=== PATIENT | female | born 1935 | race Caucasian/White ===

== ENCOUNTER → 2016-10-25 | Outpatient (CLI) | payer OTHER ==
[~2016-10-25] MED LIST: ASPI81TA28 PO; CALC600T37 PO; CHOL1000 PO; LEVO50TA6 PO; MULT-506 PO; SIMV20TA2 PO
[2016-10-25 13:21] LABS: BASO % 0.4 %; BASO ABS # 0.02 K/uL (0-0.2); COMPLETE YES; EOS % 1.7 %; HEMATOCRIT 42.7 % (37-47); IG% 0.2 %; LYMPH % 29.1 %; LYMPH ABS # 1.37 K/uL (1.2-3.4); MEAN CELL VOLUME 84.4 fL (80-100); MEAN CORPUSCULAR HEMOGLOBIN 28.1 pg (25-34); MEAN CORPUSCULAR HGB CONC 33.3 g/dl (32-36); MEAN PLATELET VOLUME 8.4 fL (7.4-10.4); MONO % 10.6 %; PLATELET COUNT 227 K/uL (130-400); RED BLOOD COUNT 5.06 M/uL (4.2-5.4)
[2016-10-25 13:34] LABS: PARTIAL THROMBOPLASTIN RATIO 1.1; PROTHROMBIN TIME (PATIENT) 10.3 SECONDS (9.0-12.0)
[2016-10-25 13:51] LABS: POTASSIUM 3.9 mmol/L (3.5-5.1)
== END | disposition home or self-care (01) ==
LOC: C.CPL 12:12
PROVIDERS: ATTEND Physician Assistant
DX: H02.403 Unspecified ptosis of bilateral eyelids (principal)

== ENCOUNTER → 2016-10-26 | Outpatient (CLI) | payer OTHER ==
--- NOTE | 2016-10-26 15:51 | MAMMOGRAPHY REPORT ---
BILATERAL DIGITAL SCREENING MAMMOGRAM WITH CAD: 10/26/2016 CLINICAL HISTORY: Routine screening. Patient has no complaints. TECHNIQUE: Bilateral CC and MLO views were obtained. Repeat MLO views were obtained to better visual ize the axillary tail. Current study was also evaluated with a Computer Aided Detection (CAD) system . COMPARISON: Comparison is made to exams dated: 09/29/2015 mammogram, 09/25/2014 mammogram, 09/19/2013 m ammogram, 09/08/2010 mammogram - [facility], 12/17/2008, and 05/14/2003 mammogram - [facility]. BREAST COMPOSITION: There are scattered areas of fibroglandular density in both breasts. FINDINGS: There are mild vascular calcifications in the breasts. No suspicious mass, architectural distortion or cluster of microcalcifications is seen. IMPRESSION: ACR BI-RADS CATEGORY 1: NEGATIVE There is no mammographic evidence of malignancy. A 1 year screening mammogram is recommended. The pa tient will receive written notification of the results. Approximately 10% of breast cancers are not detected with mammography. A negative mammographic report should not delay biopsy if a clinically suggestive mass is present. Marcy Barrera M.D. ay/:10/26/2016 15:12:44 Machine Binder Stripper: Ammy Byrnes, [facility] letter sent: Normal 1/2 BI-RADS Code: ACR BI-RADS Category 1: Negative
== END | disposition home or self-care (01) ==
LOC: C.MAMM 14:22
PROVIDERS: ATTEND Physician Assistant
DX: Z12.31 Encounter for screening mammogram for malignant neoplasm of breast (principal)

== ENCOUNTER → 2016-11-02 | Day surgery (SDC) | payer OTHER ==
[2016-10-22 15:24] VITALS: Ht 160 cm; Wt 56.8 kg
[~2016-11-02] VITALS: Ht 160 cm; Wt 56.8 kg
[~2016-11-02] MED LIST changes: +ACETAMINOPHEN 325 MG TAB PO PRN; +ARTIFICIAL TEARS OP OINT 3.5 GM TUBE ONE; +ATROPINE SULFATE 0.1 MG/ML 5ML SYR IV PRN; +BSS FLUSH ONE; +CLINDAMYCIN PHOS 150 MG/ML 2 ML VIAL IV SCH; +ERYTHROMYCIN OP OINT 5 MG/GM 3.5 GM TUBE ONE; +EpHEDrine SULFATE INJ 50 MG/ML AMP IV PRN; +FENTANYL CITRATE INJ 50 MCG/1 ML 2 ML VIAL IV PRN; +FENTANYL CITRATE INJ 50 MCG/1 ML 2 ML VIAL ONE; +FLUMAZENIL 0.1 MG/1 ML 10 ML VIAL IV PRN; +GENTIAN VIOLET TOP SOLN DROP CHARGE ONE; +HYDROmorphone INJ 1 MG/ML SYR IV PRN; +LABETALOL HCL IV 5 MG/ML 20ML IV PRN; +LACTATED RINGER'S 1000ML 1,000 ML IV SCH; +LIDOCAINE HCL 2% 2 ML VIAL (20MG/ML) ONE; +LIDOCAINE/EPINEPHRINE 1% INJ 50 ML VIAL ONE; +MEPERIDINE HCL 25 MG/ML CARP IV PRN; +METOCLOPRAMIDE HCL INJ 5 MG/ML 2 ML VIAL IV PRN; +MIDAZOLAM HCL 1 MG/ML 2ML VIAL ONE; +NALOXONE HCL 0.4 MG/1 ML VIAL/CARP IV PRN; +ONDANSETRON INJ 2 MG/ML 2 ML VIAL IV PRN; +ONDANSETRON INJ 2 MG/ML 2 ML VIAL ONE; +OXYCODONE/ACETAMINOPHEN 5-325 TAB PO PRN; +PHENYLEPHRINE 100MCG/ML 5ML SYR IV PRN; +POVIDONE-IODINE OP SOLN 30 ML BTL ONE; +PROPOFOL IV EMULSION 10 MG/ML 20 ML VIAL IV ONE; +SODIUM CHLORIDE 0.9% 1000ML 1,000 ML IV SCH; +TOBRAMYCIN/DEXAMETHASONE OPH OINT PER APPLN CHARGE ONE
--- NOTE | 2016-11-02 08:32 | History & Physical Bridge - SC ---
H&P Re-Evaluation Bridge Note: I have examined the patient, reviewed the History & Physical and in the interval since the performance of the History & Physical I have noted the following changes of clinical significance: No changes noted
--- NOTE | 2016-11-02 10:40 | [facility] Post Operative Brief Note ---
Immediate Operative Summary Operative Date Nov 02, 2016. Pre-Operative Diagnosis Bilateral upper eyelid Ptosis Post-Operative Diagnosis Same as pre-op Procedure(s) Performed Bilateral Upper Eyelid Ptosis Repair Surgeon Dr. Castillo Bleach Maker Surgeon(s) None Estimated Blood Loss 2ML Findings symmetric repair Specimens None Anesthesia local with sedation Complication(s) None Disposition Recovery Room / PACU
--- NOTE | 2016-11-02 10:44 | Discharge Instructions-SurgCtr ---
Discharge Instructions Date of Service Nov 02, 2016. Visit Reason for Visit: Ptosis Of Both Eyelids Discharge Discharge Diagnosis / Problem: eyelid ptosis Discharge Goals Goal(s): Decrease discomfort, Improve function Medications Stopped Medications Name(s): HELD ASPIRIN AND VITAMINS FOR 10 DAYS Activity Recommendations Activity Limitations: as noted below Anesthesia . Post Anesthesia Instructions: If you have had General Anesthesia or IV Sedation: * Do not drive today. * Resume driving when surgeon permits. * Do not make important decisions or sign legal documents today. * Call surgeon for: 1. Temperature elevations greater than 101 degrees F. 2. Uncontrollable pain. 3. Excessive bleeding. 4. Persistent nausea and vomiting. 5. Medication intolerance (nausea, vomiting or rash). * For nausea and vomiting use only clear liquids such as: tea, soda, bouillon until nausea subsides, then gradually increase diet as tolerated. * If you have any concerns or questions, call your surgeon's office. If physician is unavailable and it is an emergency, call 911 or go to the nearest emergency room. . Instructions / Follow-Up Instructions / Follow-Up ACTIVITY RECOMMENDATIONS: __Normal activities x__No bending, lifting or straining __No driving _x_Driving allowed when you are off pain medications and you can see clearly __Walking permitted __You should have help at home for ___ days DRESSINGS: __No dressings required __Keep dressings dry/in place until first office visit __Remove dressings ___ and leave dressings off _x_Apply ice for at least 2 days __Remove dressings and reapply garment _x_Apply prescribed antibiotic ointment to wounds 3-4 times/day for 10 days BATHING: __Keep dressings dry __Sponge bathing permitted _x_Showering permitted _x_No swimming, hot tubs or soaking in a tub MEDICATIONS: Resume previous medications unless instructed otherwise by your surgeon. _x_Do not use aspirin, Motrin, Advil or Ibuprofen as these may promote bleeding. Please use Tylenol. _x_Prescription(s) provided: pain meds given in office OTHER INSTRUCTIONS: __Record drain output 2-3 times per day SPECIAL CARE INSTRUCTIONS: * It is normal to have a mild fever after surgery. If your temperature is higher than 101.5 degrees F, please call the office at [phone]. * Constipation is a typical side effect of pain medication. An over-the- counter stool softener will help relieve this. * Leaking around surgical drains may occur and should not cause concern. Sometimes these drains become clogged. If this happens, remove the bulb and milk the clot out of the tube, then replace the bulb. * Drainage from wounds after liposuction is normal and should be expected. Garments will become soiled. You should protect furniture and bedding. This drainage should mostly subside within 2-3 days. Leave garments in place unless instructed to remove them. * If you have unusual drainage from a wound or are concerned you have an infection or have any questions or concerns, please call the office at [phone]. FOLLOW UP VISIT: If not already scheduled, please call the office, , when you return home after surgery to schedule an appointment to be seen in _2__ days. Diet Recommendations Home Diet: no limitations, resume previous diet Procedures Procedures Performed: Bilateral Upper Eyelid Ptosis Repair Pending Studies Studies pending at discharge: no Medical Emergencies . Who to Call and When: Medical Emergencies: If at any time you feel your situation is an emergency, please call 911 immediately. . Non-Emergent Contact Non-Emergency issues call your: Primary Care Provider, Surgeon . . "Provider Documentation" section prepared by Eliane Castillo. .
[2016-11-02 10:47] VITALS: TEMP 36.2
--- NOTE | 2016-11-02 11:09 | Anesthesia Progress Nt - [facility] ---
Anesthesia Post Op Note Date & Time Nov 02, 2016 at 11:09 Vital Signs Pain Intensity: 0 Vital Signs Past 12 Hours Date Time Temp Pulse Resp B/P (MAP) Pulse Ox O2 Delivery O2 Flow Rate FiO2 11/02/16 10:47 36.2 64 16 174/75 (108) 96 Room Air 11/02/16 07:43 36.5 78 16 164/86 (112) 96 Room Air Notes Mental Status: alert / awake / arousable, participated in evaluation Pt Amnestic to Procedure: Yes Nausea / Vomiting: adequately controlled Pain: adequately controlled Airway Patency, RR, SpO2: stable & adequate BP & HR: stable & adequate Hydration State: stable & adequate Anesthetic Complications: no major complications apparent
[2016-11-02 12:21] VITALS: BP 162/76; PULSE 66; O2SAT 95
--- NOTE | 2016-11-03 09:02 | OPERATIVE REPORT ---
DATE OF OPERATION: 11/02/2016 PREOPERATIVE DIAGNOSIS: Bilateral upper eyelid ptosis. POSTOPERATIVE DIAGNOSIS: Same. PROCEDURE: Bilateral upper eyelid ptosis repair via levator plication. SURGEON: Dr. Eliane Castillo. MENTAL HEALTH ASSOCIATE: None. ANESTHESIA: Local with sedation. COMPLICATIONS: None. 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 We discussed options for repair and I recommended bilateral upper eyelid ptosis repair via an external approach with levator plication. BRIEF DESCRIPTION OF THE PROCEDURE: The risks, benefits and alternatives of the procedure were explained to the patient who agreed and signed consent. She was identified and marked in the preoperative holding area. She was brought to the operating room where she was positioned supine and placed under sedation without incident. The surgical site was prepped and draped sterilely. A time-out procedure was performed. Surgical site markings were applied. I marked the supratarsal crease 8 mm above the ciliary margin and mid pupillary line. The incision was extended laterally into the [place] area and medially, taking care not to cross the medial punctum. Excess skin of the upper lid was marked for excision. The patient had absence of eyebrows and so therefore I made my measurements from the orbital rim about 1 cm inferior to the orbital rim. Similar markings were applied on the right side. 1% lidocaine with epinephrine was used to anesthetize the planned incisions. A 15 blade scalpel was used to make the incision and remove the skin from the underlying orbicularis muscle using electrocautery. Hemostasis was achieved with electrocautery. A strip of orbicularis muscle was then removed and the orbital septum was identified. The septum was opened and a scant amount of fat was identified and cauterized. The septum was dissected away superiorly and inferiorly until the tarsal plate and vascular arcade were identified. Superiorly, the levator muscle was noted and dissection was performed. A 6-0 U-suture was placed in the mid pupillary line to advance the levator muscle to the tarsal plate to plicate the levator aponeurosis. It was advanced about 8 mm. A similar procedure was undertaken on the right side. The patient was placed in the seated position and asked to open and close her eyes. There was still noted to be ptosis and asymmetry bilaterally. The U-suture was redone and additional sutures were placed until the lid position was at the superior limbus bilaterally. The patient was then additionally sedated and wound closure was performed using 6-0 nylon interrupted sutures to close the skin, taking a bite of underlying orbicularis muscle. Following the procedure, eyes were irrigated with BSS and ophthalmic antibiotic ointment was placed. The patient was once again placed in seated position and noted to have good elevator function with improvement of her ptosis. The procedure was tolerated well. The patient was awakened and transferred to recovery room in satisfactory condition. I attest to the content of the Intraoperative Record and any orders documented therein. Any exception s are noted below.
== END | disposition home or self-care (01) ==
LOC: X.SURG 07:34
PROVIDERS: ATTEND Plastic Surgery
DX: H02.403 Unspecified ptosis of bilateral eyelids (principal); E78.00 Pure hypercholesterolemia, unspecified; E03.9 Hypothyroidism, unspecified; Z79.82 Long term (current) use of aspirin; Z79.899 Other long term (current) drug therapy

== ENCOUNTER → 2017-02-23 | Outpatient (CLI) | payer OTHER ==
[~2017-02-23] MED LIST changes: -ACETAMINOPHEN 325 MG TAB PO PRN; -ARTIFICIAL TEARS OP OINT 3.5 GM TUBE ONE; -ASPI81TA28 PO; -ATROPINE SULFATE 0.1 MG/ML 5ML SYR IV PRN; -BSS FLUSH ONE; -CLINDAMYCIN PHOS 150 MG/ML 2 ML VIAL IV SCH; -ERYTHROMYCIN OP OINT 5 MG/GM 3.5 GM TUBE ONE; -EpHEDrine SULFATE INJ 50 MG/ML AMP IV PRN; -FENTANYL CITRATE INJ 50 MCG/1 ML 2 ML VIAL IV PRN; -FENTANYL CITRATE INJ 50 MCG/1 ML 2 ML VIAL ONE; -FLUMAZENIL 0.1 MG/1 ML 10 ML VIAL IV PRN; -GENTIAN VIOLET TOP SOLN DROP CHARGE ONE; -HYDROmorphone INJ 1 MG/ML SYR IV PRN; -LABETALOL HCL IV 5 MG/ML 20ML IV PRN; -LACTATED RINGER'S 1000ML 1,000 ML IV SCH; -LIDOCAINE HCL 2% 2 ML VIAL (20MG/ML) ONE; -LIDOCAINE/EPINEPHRINE 1% INJ 50 ML VIAL ONE; -MEPERIDINE HCL 25 MG/ML CARP IV PRN; -METOCLOPRAMIDE HCL INJ 5 MG/ML 2 ML VIAL IV PRN; -MIDAZOLAM HCL 1 MG/ML 2ML VIAL ONE; -NALOXONE HCL 0.4 MG/1 ML VIAL/CARP IV PRN; -ONDANSETRON INJ 2 MG/ML 2 ML VIAL IV PRN; -ONDANSETRON INJ 2 MG/ML 2 ML VIAL ONE; -OXYCODONE/ACETAMINOPHEN 5-325 TAB PO PRN; -PHENYLEPHRINE 100MCG/ML 5ML SYR IV PRN; -POVIDONE-IODINE OP SOLN 30 ML BTL ONE; -PROPOFOL IV EMULSION 10 MG/ML 20 ML VIAL IV ONE; -SODIUM CHLORIDE 0.9% 1000ML 1,000 ML IV SCH; -TOBRAMYCIN/DEXAMETHASONE OPH OINT PER APPLN CHARGE ONE
[2017-02-23 10:37] LABS: BASO % 0.4 %; BASO ABS # 0.02 K/uL (0-0.2); COMPLETE YES; EOS % 3.9 %; IG% 0.2 %; LYMPH % 29.5 %; LYMPH ABS # 1.35 K/uL (1.2-3.4); MEAN CELL VOLUME 87.1 fL (80-100); MEAN CORPUSCULAR HEMOGLOBIN 28.8 pg (25-34); MONO % 12.2 %; NEUT % 53.8 %; PLATELET COUNT 191 K/uL (130-400); RED BLOOD COUNT 4.59 M/uL (4.2-5.4); WHITE BLOOD COUNT 4.58 K/uL (4.8-10.8)
[2017-02-23 10:47] LABS: PARTIAL THROMBOPLASTIN RATIO 1.1; PROTHROMBIN TIME (PATIENT) 10.3 SECONDS (9.0-12.0)
[2017-02-23 11:22] LABS: BLOOD UREA NITROGEN 18 mg/dl (7-18); BUN/CREATININE RATIO 21.4 (10-20); CALCIUM 9.2 mg/dl (8.5-10.1); CARBON DIOXIDE 27 mmol/L (21-32); CHLORIDE 104 mmol/L (98-107); CREATININE 0.84 mg/dl (0.60-1.20); GLUCOSE 86 mg/dl (70-99); SODIUM 138 mmol/L (136-145)
== END | disposition home or self-care (01) ==
LOC: C.LAB 09:45
PROVIDERS: ATTEND Physician Assistant
DX: H02.833 Dermatochalasis of right eye, unspecified eyelid (principal)

== ENCOUNTER → 2017-03-02 | Day surgery (SDC) | payer OTHER ==
[2017-02-09 10:18] VITALS: Ht 160 cm; Wt 54.5 kg
[~2017-03-02] VITALS: Ht 160 cm; Wt 54.5 kg
[~2017-03-02] MED LIST changes: +ACETAMINOPHEN 325 MG TAB PO PRN; +ARTIFICIAL TEARS OP OINT 3.5 GM TUBE ONE; +ASPI81TA28 PO; +ATROPINE SULFATE 0.1 MG/ML 5ML SYR IV PRN; +BACITRACIN OP OINT 3.5 GM TUBE ONE; +CLINDAMYCIN PHOS 150 MG/ML 2 ML VIAL IV SCH; +DEXAMETHASONE SOD INJ 4 MG/ML VIAL ONE; +ERYTHROMYCIN OP OINT 5 MG/GM 3.5 GM TUBE ONE; +EpHEDrine SULFATE INJ 50 MG/ML AMP IV PRN; +FENTANYL CITRATE INJ 50 MCG/1 ML 2 ML VIAL IV PRN; +FENTANYL CITRATE INJ 50 MCG/1 ML 2 ML VIAL ONE; +HYDROmorphone INJ 1 MG/ML SYR IV PRN; +LACTATED RINGER'S 1000ML 1,000 ML IV SCH; +LIDO 2%/EPINEPHRINE 1:100000 20 ML VIAL INFIL ONE; +LIDOCAINE HCL 2% 2 ML VIAL (20MG/ML) ONE; +LIDOCAINE/EPINEPHRINE 1% INJ 50 ML VIAL ONE; +METOCLOPRAMIDE HCL INJ 5 MG/ML 2 ML VIAL IV PRN; +MIDAZOLAM HCL 1 MG/ML 2ML VIAL ONE; +ONDANSETRON INJ 2 MG/ML 2 ML VIAL IV PRN; +ONDANSETRON INJ 2 MG/ML 2 ML VIAL ONE; +OXYCODONE/ACETAMINOPHEN 5-325 TAB PO PRN; +PHENYLEPHRINE 100MCG/ML 5ML SYR IV PRN; +POVIDONE-IODINE OP SOLN 30 ML BTL ONE; +PROPOFOL IV EMULSION 10 MG/ML 20 ML VIAL IV ONE; +SODIUM CHLORIDE 0.9% 1000ML 1,000 ML IV SCH
--- NOTE | 2017-03-02 07:50 | [facility] Post Operative Brief Note ---
Immediate Operative Summary Operative Date Mar 02, 2017. Pre-Operative Diagnosis Right upper eyelid dermatochalasis, history of bilateral ptosis repair Post-Operative Diagnosis Same as pre-op Procedure(s) Performed Right Upper Blepharoplasty Surgeon Office Admin Surgeon(s) Elicia BERNABE Estimated Blood Loss 1ML Findings significant excess skin right upper lid Specimens None Anesthesia sedation Complication(s) None Disposition Recovery Room / PACU
--- NOTE | 2017-03-02 07:54 | Discharge Instructions ---
Discharge Instructions Date of Service Mar 02, 2017. Admission Reason for Admission: Dermatochalasis Right Eyelid Discharge Discharge Diagnosis / Problem: dermatochalasis Discharge Goals Goal(s): Decrease discomfort Activity Recommendations Activity Limitations: per Instructions/Follow-up section ACTIVITY RECOMMENDATIONS: __Normal activities _x_No bending, lifting or straining __No driving _x_Driving allowed when you are off pain medications _x_Walking permitted __You should have help at home for ___ days DRESSINGS: _x_No dressings required __Keep dressings dry/in place until first office visit __Remove dressings ___ and leave dressings off _x_Apply ice _at least 3__ days __Remove dressings and reapply garment _x_Apply antibiotic ointment to wounds 3-4 times/day until gone BATHING: __Keep dressings dry _x_Sponge bathing permitted __Showering permitted _x_No swimming, hot tubs or soaking in a tub MEDICATIONS: Resume previous medications unless instructed otherwise by your surgeon. _x_Do not use aspirin, Motrin, Advil or Ibuprofen as these may promote bleeding. Please use Tylenol. _x_Prescription(s) provided: antibiotic ointment provided at your last office visit OTHER INSTRUCTIONS: __Record drain output 2-3 times per day SPECIAL CARE INSTRUCTIONS: * It is normal to have a mild fever after surgery. If your temperature is higher than 101.5 degrees F, please call the office at [phone]. * Constipation is a typical side effect of pain medication. An over-the- counter stool softener will help relieve this. * Leaking around surgical drains may occur and should not cause concern. Sometimes these drains become clogged. If this happens, remove the bulb and milk the clot out of the tube, then replace the bulb. * Drainage from wounds after liposuction is normal and should be expected. Garments will become soiled. You should protect furniture and bedding. This drainage should mostly subside within 2-3 days. Leave garments in place unless instructed to remove them. * If you have unusual drainage from a wound or are concerned you have an infection or have any questions or concerns, please call the office at [phone]. FOLLOW UP VISIT: If not already scheduled, please call the office, , when you return home after surgery to schedule an appointment to be seen in __2_ days. . Current Hospital Diet Patient's current hospital diet: Discharge Diet Recommended Diet: Regular Diet Procedures Procedures Performed: Right Upper Blepharoplasty Pending Studies Studies pending at discharge: no Medical Emergencies . Who to Call and When: Medical Emergencies: If at any time you feel your situation is an emergency, please call 911 immediately. . Non-Emergent Contact Non-Emergency issues call your: Primary Care Provider, Surgeon . "Provider Documentation" section prepared by Mirna Padron. . VTE Core Measure Inpt VTE Proph given/why not?: SCD's [place] Drug Monitoring Program Search Results: no issues identified
[2017-03-02 09:02] VITALS: TEMP 36.4
--- NOTE | 2017-03-02 09:10 | Anesthesia Progress Nt - [facility] ---
Anesthesia Post Op Note Date & Time Mar 02, 2017 at 09:09 Vital Signs Pain Intensity: 0 Vital Signs Past 12 Hours Date Time Temp Pulse Resp B/P (MAP) Pulse Ox O2 Delivery O2 Flow Rate FiO2 03/02/17 09:02 36.4 54 16 147/82 (103) 98 Room Air 03/02/17 07:57 36.1 62 16 124/68 (86) 98 Room Air 03/02/17 06:26 36.4 76 16 166/78 (107) 96 Room Air Notes Mental Status: alert / awake / arousable, participated in evaluation Pt Amnestic to Procedure: Yes Nausea / Vomiting: adequately controlled Pain: adequately controlled Airway Patency, RR, SpO2: stable & adequate BP & HR: stable & adequate Hydration State: stable & adequate Anesthetic Complications: no major complications apparent Pt awake, doing well, no complaints. VSS.
--- NOTE | 2017-03-02 09:11 | OPERATIVE REPORT ---
DATE OF OPERATION: 03/02/2017 PREOPERATIVE DIAGNOSIS: Status post bilateral ptosis repair, dermatochalasis right upper eyelid. POSTOPERATIVE DIAGNOSIS: Same. PROCEDURE: Right upper eyelid blepharoplasty. SURGEON: Eliane Castillo MD. DENTAL SCHEDULER: Mirna Padron PA-C. ANESTHESIA: General. COMPLICATIONS: None. INDICATION FOR THE PROCEDURE: The patient is an 82-year-old female who underwent bilateral ptosis repair with me in November 2016. Overall, she did well and noted improvement in the vision in the left eye with improvement of the lid position. However, once the edema had resolved, she had some persistent difficulties with her vision and noted excess skin of the right upper eyelid. On exam, the skin was resting on the lash line and caused significant asymmetry. Lid position itself was reasonable and therefore we discussed proceeding with right upper eyelid blepharoplasty. BRIEF DESCRIPTION OF THE PROCEDURE: Risks, benefits, and alternatives of the procedure were explained to the patient who agreed and signed consent. She was identified and marked in the preoperative holding area. She was brought to the operating room where she was positioned supine and placed under anesthesia without incident. Surgical site was prepped and draped sterilely. A time-out procedure was performed. The planned skin excision was marked and noted to be reasonably symmetric with the left side. 1% lidocaine with epinephrine was used to anesthetize the right upper eyelid. A 15 blade scalpel was used to make the skin incision and the skin was excised at the level of the orbicularis. The medial fat compartment was opened and cauterized. Hemostasis was achieved with electrocautery. Wound was reapproximated using 6-0 nylon interrupted sutures taking a bite of orbicularis muscle in order to better recreate the supratarsal crease. Antibiotic ointment was applied. The patient was awakened and transferred to recovery in satisfactory condition. I attest to the content of the Intraoperative Record and any orders documented therein. Any exception s are noted below.
[2017-03-02 09:41] VITALS: BP 142/83; PULSE 56; O2SAT 99
== END | disposition home or self-care (01) ==
LOC: X.SURG 06:08
PROVIDERS: ATTEND Plastic Surgery
DX: H02.831 Dermatochalasis of right upper eyelid (principal); E78.00 Pure hypercholesterolemia, unspecified; E03.9 Hypothyroidism, unspecified; Z79.82 Long term (current) use of aspirin; Z79.899 Other long term (current) drug therapy